=== PATIENT | female | born 2000 | race Caucasian/White ===

== ENCOUNTER 2022-08-23 13:35 | Emergency (ER) | payer MEDICAID ==
[~2022-08-23] VITALS: Ht 167.6 cm; Wt 63.6 kg
[~2022-08-23 13:35] MED LIST: NO HOME MEDS
[2022-08-23 14:02] VITALS: BP 101/63
[2022-08-23] MEDS ORDERED: CEPH-585 PO (15:03)
[2022-08-23] MEDS ORDERED: BACI28.42 TP (15:03)
== END 2022-08-23 15:28 | disposition home or self-care (01) ==
LOC: ER 13:35
DX: J34.89 Other specified disorders of nose and nasal sinuses (principal)
CPT/HCPCS: 99283

== ENCOUNTER 2024-06-06 08:36 | Outpatient (CLI) | payer MEDICAID ==
[2024-06-06] VITALS (15 sets, daily range): BP systolic 115–135; BP diastolic 61–91; PULSE 78–103
[~2024-06-06 08:36] MED LIST changes: +BACI28.42 TP
== END 2024-06-06 23:59 | disposition home or self-care (01) ==
LOC: CARD DIAG 08:36
PROVIDERS: ATTEND Family Medicine
DX: R00.2 Palpitations (principal); R42 Dizziness and giddiness
CPT/HCPCS: 93660